=== PATIENT | female | born 1995 | race African-American/Black ===

== ENCOUNTER 2016-10-12 13:32 | Emergency (ER) | payer BC ==
[~2016-10-12] VITALS: Ht 162.6 cm; Wt 59.5 kg
[2016-10-12 13:36] VITALS: TEMP 98
[2016-10-12] MEDS ORDERED: SKYLA13.5 MG IY (13:39)
[2016-10-12 14:24] LABS: BASO # 0.1 (0.0-0.2); BASO % 0.9 % (0.0-2.0); EOS # 0.4 (0.0-0.7); EOS % 3.9 % (0-4.0); GRAN % 55.8 % (42.2-75.2); HEMATOCRIT 40.7 % (37.0-47.0); HEMOGLOBIN 13.8 g/dl (12.5-16.0); LYMPH % 33.4 % (20.0-51.0); MEAN CELL VOLUME 95 fl (80.0-100.0); MEAN CORPUSCULAR HEMOGLOBIN 32 pg (27.0-31.0); MEAN CORPUSCULAR HGB CONC 34 g/dl (33.0-37.0); MEAN PLATELET VOLUME 10.8 fl (7.4-10.4); MONO # 0.5 (0.1-0.6); MONO % 5.8 % (1.7-9.3); PLATELET COUNT 243 K/mm3 (130-400); RED BLOOD COUNT 4.29 M/mm3 (4.10-5.30); REDCELL DISTRIBUTION WIDTH-CV 11.9 % (11.5-14.5)
[2016-10-12 14:33] LABS: PH 5 (5-8); SQUAMOUS EPITHELIAL 0-2 /hpf; URINE APPEARANCE Clear; URINE BACTERIA None Seen /hpf; URINE BILIRUBIN Negative (NEGATIVE); URINE BLOOD Negative (NEGATIVE); URINE COLOR Yellow; URINE GLUCOSE Negative (NEGATIVE); URINE KETONE Negative (NEGATIVE); URINE RBC 0-2 /hpf; URINE UROBILINOGEN Negative (NEGATIVE); URINE WBC 0-2 /hpf
[2016-10-12 14:51] LABS: ADJUSTED CALCIUM 9.5 mg/dL (8.4-10.2); ALANINE AMINOTRANSFERASE 46 U/L (9-52); ALBUMIN 4.4 gm/dL (3.5-5.0); ALKALINE PHOSPHATASE 64 U/L (50-136); ANION GAP 11 mmol/L (7-16); BILIRUBIN,TOTAL 0.8 mg/dL (0.0-1.0); BLOOD UREA NITROGEN 8 mg/dL (7-17); CALCIUM 9.8 mg/dL (8.4-10.2); CARBON DIOXIDE 27 mmol/L (22-30); CHLORIDE 101 mmol/L (98-107); CREATININE, serum 0.66 mg/dL (0.52-1.25); GLUCOSE 78 mg/dL (74-106); POTASSIUM 3.6 mmol/L (3.4-5.0); SODIUM 138 mmol/L (137-145)
[2016-10-12 17:07] LABS: C-REACTIVE PROTEIN < 0.5 mg/dL (0.0-0.9)
[2016-10-12] MEDS ORDERED: NORCO 325 MG-51 TAB PO (17:20)
[2016-10-12] MEDS ORDERED: ZOFRAN ODT4 MG PO (17:20)
[2016-10-12 17:30] VITALS: BP 134/78; PULSE 80
== END 2016-10-12 17:33 | disposition home or self-care (01) ==
LOC: COL.ER 13:32
PROVIDERS: Emergency Medicine
DX: N83.8 Other noninflammatory disorders of ovary, fallopian tube and broad ligament (principal); N83.202 Unspecified ovarian cyst, left side
CPT/HCPCS: J1885; J7030; Q9967

== ENCOUNTER 2017-04-23 14:23 | Emergency (ER) | payer BC ==
[~2017-04-23] VITALS: Ht 162.6 cm; Wt 64.1 kg
[~2017-04-23 14:23] MED LIST: NORCO 325 MG-51 TAB PO; SKYLA13.5 MG IY; ZOFRAN ODT4 MG PO
[2017-04-23 14:27] VITALS: BP 113/68; PULSE 103; TEMP 99
[2017-04-23] MEDS ORDERED: FEMARA PO (14:31)
[2017-04-23] MEDS ORDERED: OSCAL 500 TAB500 MG PO (14:32)
[2017-04-23] MEDS ORDERED: MASON NATURAL2000 IU PO (14:32)
[2017-04-23] MEDS ORDERED: LUPRON DEPOT11.25 M3 IM (14:33)
== END 2017-04-23 16:02 | disposition left against medical advice (07) ==
LOC: COL.ER 14:23
DX: N93.9 Abnormal uterine and vaginal bleeding, unspecified (principal); F41.9 Anxiety disorder, unspecified; Z85.43 Personal history of malignant neoplasm of ovary; Z53.21 Procedure and treatment not carried out due to patient leaving prior to being seen by health care provider